=== PATIENT | male | born 1995 | race Hispanic/Latino ===

== ENCOUNTER 2018-02-09 10:51 | Inpatient (IN) | payer BC, OTHER | END 2018-02-17 16:45 | disposition home or self-care (01) | LOC: EDH 10:51 → 3BH 02-11 07:07 → 3DH 02-11 17:07 → EDHIP 17:00 → 4AH 22:37 | PROC: 0H99XZZ Drainage of Perineum Skin, External Approach (ICD-10-PCS; principal; 2018-02-09 20:27) | PROC: 0JB70ZZ Excision of Back Subcutaneous Tissue and Fascia, Open Approach (ICD-10-PCS; 2018-02-09 20:27) | DX: L02.215 Cutaneous abscess of perineum (principal); M72.6 Necrotizing fasciitis; L03.317 Cellulitis of buttock; E11.9 Type 2 diabetes mellitus without complications ==